=== PATIENT | female | born 1995 | race Caucasian/White ===

== ENCOUNTER 2020-02-24 18:14 | Emergency (ER) | payer OTHER ==
[~2020-02-24] VITALS: Ht 165.1 cm; Wt 91.2 kg
[2020-02-24 18:49] VITALS: BP 134/76
--- NOTE | 2020-02-24 18:56 | NUR ---
pt refusing nasal swab PCR.
[2020-02-24 18:57] VITALS: BP 134/76
--- NOTE | 2020-02-24 19:23 | NUR ---
Pt left without being seen by DESTINEE Mccallum. Addendum: 02/24/20 at 1923 [facility] [id number]
== END 2020-02-24 19:12 | disposition left against medical advice (07) ==
LOC: MED 18:14
DX: M79.10 Myalgia, unspecified site (principal); R43.9 Unspecified disturbances of smell and taste; Z53.21 Procedure and treatment not carried out due to patient leaving prior to being seen by health care provider